=== PATIENT | female | born 2000 | race Caucasian/White ===

== ENCOUNTER 2023-01-19 16:26 | Emergency (ER) | payer BC, SELFPAY ==
--- NOTE | ~2023-01-19 | XR_ITS ---
EXAMINATION: XR chest 2V DATE: 01/19/2023 17:04 INDICATION: Mid chest pain. TECHNIQUE: Frontal and lateral views of the chest were obtained. COMPARISON: None. FINDINGS: The chest demonstrates clear lungs without pneumonia, pleural effusion, or pneumothorax. Th e heart size is normal. IMPRESSION: 1. No acute cardiopulmonary disease. Reviewed, dictated and finalized at location A.
--- NOTE | 2023-01-19 16:30 | ECG_ITS ---
Measurements Intervals [place] Rate: 94 P: 65 ME: 132 QRS: 47 QRSD: 80 T: 45 QT: 331 QTc: 416 Interpretive Statements SINUS RHYTHM WITH SINUS ARRHYTHMIA NO PREVIOUS ECG AVAILABLE FOR COMPARISON Electronically Signed On 01-19-2023 17:13:38 CDT by Dav Farmer M.D.
[2023-01-19 16:36] VITALS: BP 136/83; PULSE 95; RESP 16; TEMP 36.7; O2SAT 100
[2023-01-19 16:51] LABS: Basophils Absolute Auto 0.1 K/mm3 (0.0-0.1); Eosinophils Absolute Auto 0.2 K/mm3 (0-0.3); Eosinophils Percent Auto 2.5 % (0-4.4); Hematocrit 46.5 % (37.0-47.0); Hemoglobin 15.1 g/dL (12.0-15.0); Immature Granulocyte Absolute 0.01 K/mm3 (0.00-0.031); Immature Granulocyte Percent A 0.1 % (0-0.5); Lymphocytes Absolute Auto 2.46 K/mm3 (0.9-3.2); Lymphocytes Percent Auto 29.6 % (18.3-44.2); Mean Corpuscular HGB Conc 32.5 g/dl (32-36); Mean Corpuscular Hemoglobin 27.8 pg (26-34); Mean Corpuscular Volume 85.6 fl (80-100); Mean Platelet Volume 10.7 fl (7.4-10.4); Monocytes Absolute Auto 0.4 K/mm3 (0.1-0.6); Monocytes Percent Auto 4.3 % (2.6-8.5); Neutrophils Absolute Auto 5.2 K/mm3 (1.3-6.7); Neutrophils Percent Auto 62.5 % (45.5-73.1); Platelet Count Result 301 k/mm3 (150-375); Red Blood Count 5.43 M/mm3 (4.2-5.4); Red Cell Distribution Width 12.6 % (11.5-14.5); White Blood Count 8.3 K/mm3 (4.5-10.0)
[2023-01-19 17:01] LABS: Partial Thromboplastin Time 28.7 SECONDS (22.3-36.8); Prothrombin Time 13.8 Seconds (11.1-14.7)
[2023-01-19 17:03] LABS: Alanine Aminotransferase 25 U/L (6-35); Albumin Level 4.8 g/dL (3.5-5.1); Alkaline Phosphatase 73 U/L (38-126); Anion Gap 6 mmol/L (8-16); Aspartate Amino Transferase 28 U/L (14-36); Bilirubin,Total 0.8 mg/dL (0.2-1.3); Blood Urea Nitrogen 12 mg/dL (7-17); Calcium 8.8 mg/dL (8.4-10.2); Carbon Dioxide 30 mmol/L (22-30); Chloride 101 mmol/L (98-107); Estimated CRCL calculation 78 ml/min; Estimated Glomerular Filt Rate > 60; Glucose 87 mg/dL (65-110); Lipase 84 U/L (23-300); Potassium 4.1 mmol/L (3.4-5.0); Sodium 137 mmol/L (137-145)
[2023-01-19 17:13] LABS: Troponin I < 0.012 ng/mL (0.000-0.034)
--- NOTE | 2023-01-19 17:53 | ED.CHESTPAIN ---
HPI - Chest Pain General Chief Complaint: Chest Pain Stated Complaint: chest pain Time Seen by Provider: 01/19/23 17:32 History of Present Illness HPI narrative: 22 y/o F with a history of anxiety reports for evaluation of intermittent chest pain for the past 2 weeks. Patient states she notices a substernal dull ache with intermittent sharp chest pains to her lower ribs that switch sides. She states at times she feels like the pain radiates to her back but this is not consistent. She states that her pain is worse after she smokes marijuana or vapes, as well as when she is sitting still. Patient states her pain improves when she paces. She reports an intermittent cough after she smokes. She smoked was last night when her pain was a 7 out of 10, and is currently a 4 out of 10. Of note, patient is taking Adderall and Wellbutrin prescribed by her psychiatrist. She was taking Zoloft for the past 2 days but then discontinued it today after her mother called her psychiatrist telling her about the chest pain and the psychiatrist advised to discontinue the Zoloft. She denies syncope, fever, sore throat, indigestion, abdominal pain, n/v/d. She states she feels anxious at baseline, but does not feel increased anxiety currently. Related Data Allergies Allergy/AdvReac Type Severity Reaction Status Date / Time No Known Allergies Allergy Unknown Unverified 12/29/18 22:18 Review of Systems Review of Systems: CONSTITUTIONAL: Denies fever, chills EYES: Denies visual changes, redness, or discharge. ENT: Denies rhinorrhea, congestion, sore throat, or otalgia. CARDIOVASCULAR: See HPI RESPIRATORY: Denies cough or dyspnea. GASTROINTESTINAL: Denies abdominal pain, nausea, vomiting, or diarrhea. GENITOURINARY: Denies dysuria or hematuria. SKIN: Denies rash or itching. MUSCULOSKELETAL: Denies back pain, joint pain, or myalgia. NEUROLOGIC: Denies headache, numbness, dizziness, or weakness. PSYCHIATRIC: Denies anxiety or depression. Exam Narrative: GENERAL: Well-appearing, in no acute distress. HEAD: Normocephalic EYES: PERRLA, EOMI ENT: Nares clear. Mucous membranes moist. Oropharynx without tonsillar hypertrophy exudate or other lesions. NECK: Supple. CHEST: No respiratory distress. Clear to auscultation, no adventitious breath sounds. No tenderness to chest wall. No overlying skin changes. HEART: Regular rate and rhythm. No murmur heard. Normal peripheral pulses. ABDOMEN: Soft, nontender, normal active bowel sounds. EXTREMITIES: Normal range of motion. No edema. SKIN: Warm, dry, no rash. NEURO: No focal deficits. Alert and oriented x3. PSYCH: Normal mood and affect. Course Vital Signs Vital signs: Vital Signs Temperature 98.1 F 01/19/23 16:36 Pulse Rate 95 01/19/23 16:36 Respiratory Rate 16 01/19/23 16:36 Blood Pressure 136/83 01/19/23 16:36 Pulse Oximetry 100 01/19/23 16:36 Oxygen Delivery Room Air 01/19/23 16:36 Temperature 97.6 F 01/19/23 19:14 Pulse Rate 83 01/19/23 19:14 Respiratory Rate 17 01/19/23 19:14 Blood Pressure 120/86 01/19/23 19:14 Pulse Oximetry 100 01/19/23 19:14 Oxygen Delivery Room Air 01/19/23 16:36 MDM - Chest Pain MDM Narrative Medical decision making narrative: 22 y/o F with a history of anxiety reports for evaluation of intermittent chest pain for the past 2 weeks, worse after smoking marijuana and vaping. See HPI for further history. Vital stable. Patient resting comfortably in exam bed, exam unremarkable. Lab work unremarkable. Troponin normal, D dimer not elevated. CXR without acute cardiopulmonary abnormalities. EKG shows sinus rhythm with sinus arrhythmia, no ischemic changes. Pain and anti-anxiolytics offered to the patient, she declined. Labs and imaging discussed with the patient. I suspect her chest pain may be secondary to smoking/vaping vs anxiety. Advised patient to d/c smoking/vaping and to follow up with PCP and her psychiatrist. PCP referra
[2023-01-19 18:50] LABS: D Dimer < 0.27 ug/mL (<0.48)
[2023-01-19 19:14] VITALS: BP 120/86; PULSE 83; RESP 17; TEMP 36.4; O2SAT 100
== END 2023-01-19 19:15 | disposition home or self-care (01) ==
PROVIDERS: Emergency Medicine; Emergency Provider Physician Assistant
DX: R07.89 Other chest pain (principal); F17.290 Nicotine dependence, other tobacco product, uncomplicated
CPT/HCPCS: 36415; 71046; 80053; 83690; 84484; 85025; 85380; 85610; 85730; 93005; 99284